=== PATIENT | female | born 1980 | race African-American/Black ===

== ENCOUNTER 2022-01-08 16:14 | Emergency (ER) | payer BC, MEDICAID ==
[~2022-01-08] VITALS: Ht 172.7 cm; Wt 66.0 kg
[2022-01-08 16:18] VITALS: BP 123/76
== END 2022-01-08 18:11 | disposition left against medical advice (07) ==
LOC: ER 16:14
DX: Z53.21 Procedure and treatment not carried out due to patient leaving prior to being seen by health care provider (principal)
CPT/HCPCS: 81025; 93005; 99283